=== PATIENT | female | born 1950 | race Caucasian/White ===

== ENCOUNTER 2017-03-17 11:40 | Outpatient (CLI) | payer OTHER ==
[2017-03-17 12:56] LABS: APPEARANCE,URINE CLOUDY (CLEAR); COLOR,URINE AMBER (YELLOW); OCCULT BLOOD,URINE 3+ (NEGATIVE)
[2017-03-17 12:57] LABS: UROBILINOGEN URINE 0.2 Eu (0.2-1.0)
== END 2017-03-18 11:42 ==
LOC: LAB 11:40
PROVIDERS: ATTEND Internal Medicine
DX: R30.0 Dysuria (principal)
CPT/HCPCS: 81002; 87086; 87186